=== PATIENT | female | born 1995 | race Asian ===

== ENCOUNTER → 2025-08-08 11:37 | Outpatient (CLI) | payer OTHER, SELFPAY ==
[2025-08-08 14:37] LABS: Urine N gonorrhoeae NOT DETECTED
[2025-08-08 14:40] LABS: Urine Chlamydia NOT DETECTED
== END ==
PROVIDERS: Visit Provider Obstetrics & Gynecology
DX: Z11.3 Encounter for screening for infections with a predominantly sexual mode of transmission (principal)
CPT/HCPCS: 87491; 87591

== ENCOUNTER → 2025-08-08 12:09 | Outpatient (CLI) | payer OTHER, SELFPAY ==
[2025-08-08 12:45] LABS: Add Manual Diff / Slide Review NO; Hematocrit 38.1 % (36-46); Hemoglobin 13.1 g/dL (12.0-16.0); Lymphocytes Absolute Auto 1700 /uL (1100-4500); Mean Corpuscular HGB Conc 34.3 % (30-36); Mean Corpuscular Hemoglobin 29.6 PG (26-34); Mean Corpuscular Volume 86.4 fL (80-100); Platelet Count 290 X10^3/uL (150-400)
[2025-08-08 13:30] LABS: Natera Collection Specimen Collected
[2025-08-08 13:53] LABS: Hepatitis B Surface Antigen NEGATIVE s/c (NEGATIVE)
[2025-08-08 14:10] LABS: HIV 1 & 2 Ab/Ag 4th Gen Combo NEGATIVE (NEGATIVE); Hep C Virus Ab w/Reflex Quant NEGATIVE s/c (NEGATIVE)
== END ==
PROVIDERS: Obstetrics & Gynecology; Referring Provider Obstetrics & Gynecology; Visit Provider Obstetrics & Gynecology
DX: Z34.80 Encounter for supervision of other normal pregnancy, unspecified trimester (principal); Z3A.10 10 weeks gestation of pregnancy; Z11.3 Encounter for screening for infections with a predominantly sexual mode of transmission
CPT/HCPCS: 36415; 80055; 86787; 86803; 86850; 86900; 86901; 87086; 87389; 87491; 87591

== ENCOUNTER → 2025-09-11 10:38 | Outpatient (CLI) | payer OTHER, SELFPAY | PROVIDERS: Referring Provider Obstetrics & Gynecology; Visit Provider Obstetrics & Gynecology | DX: Z34.82 Encounter for supervision of other normal pregnancy, second trimester (principal); Z36.0 Encounter for antenatal screening for chromosomal anomalies | CPT/HCPCS: 36415; 82105 ==

== ENCOUNTER → 2025-10-09 11:50 | Outpatient (CLI) | payer OTHER, SELFPAY ==
--- NOTE | 2025-10-09 11:51 | DI.US.S_ITS ---
PROCEDURE: US OB >= 14 WEEKS FETUS INDICATIONS: 20 weeks anatomy scan TECHNIQUE: Real-time scanning was performed of the fetus, with image documentation and biometric measurements. Calculations are based on the working ANKIT of 03/01/2026. COMPARISON: None. FINDINGS: General: A single living intrauterine gestation is present. Presentation: Breech Placenta: Placental position is posterior , without previa. Amniotic fluid index: 13.9 cm, normal range is 5-24 cm. Single deepest vertical pocket is 3.9 cm. heart rate: 152 beats per minute. Maternal cervical canal: 3.0 cm long. Normal lower limit is 2.5 cm. biometrics: Biparietal diameter: 4.2 cm, 18 week 5 day Head circumference: 15.6 cm, 18 week 4 day Abdominal circumference: 14.2 cm, 19 week 4 day Femur length: 2.6 cm, 17 week 6 day Clinically estimated gestational age: 19 week 4 day Composite gestational age from present scan: 18 week 5 day Estimated weight and percentile: 256 g, 10th percentile Anatomic survey: Neuro: Ventricles are non-dilated at less than 10 mm. Cisterna magna is normal at 3-11 mm. Cerebellum is normal in size and morphology. Nuchal skin fold: Normal at less than 6 mm between 14-21 weeks gestational age. Face: Nose and lips, facial profile are normal. Spine: No evidence for spina bifida. Heart: 4-chambered heart is present, with normal ventricular outflow tracts. Diaphragm: Diaphragm is intact. Stomach: Left-sided stomach is present. Kidneys: No hydronephrosis. Normal is less than 5 mm in 2nd trimester, less than 7 mm in 3rd trimester. Cord: 3-vessel cord has orthotopic insertion. Bladder: Normal in size. Extremities: All 4 extremities identified. IMPRESSION: Single live intrauterine consistent with 18 week 5 day gestation. Normal anatomic survey Approved by: Bernard Munoz M.D. on 10/10/2025 at 17:36
== END ==
LOC: US 11:51
PROVIDERS: Referring Provider Obstetrics & Gynecology; Visit Provider Obstetrics & Gynecology
DX: Z34.82 Encounter for supervision of other normal pregnancy, second trimester (principal); Z36.0 Encounter for antenatal screening for chromosomal anomalies; Z3A.19 19 weeks gestation of pregnancy
CPT/HCPCS: 76811

== ENCOUNTER → 2025-11-13 12:11 | Outpatient (CLI) | payer OTHER, SELFPAY ==
[2025-11-13 14:10] LABS: Hematocrit 33.1 % (36-46); Hemoglobin 11.2 g/dL (12.0-16.0)
[2025-11-13 14:30] LABS: GTT (PREG) 1 Hour PP 50gm Dose 146 mg/dL (76-139)
== END ==
PROVIDERS: Referring Provider Obstetrics & Gynecology; Visit Provider Obstetrics & Gynecology
DX: Z13.1 Encounter for screening for diabetes mellitus (principal); Z13.0 Encounter for screening for diseases of the blood and blood-forming organs and certain disorders involving the immune mechanism
CPT/HCPCS: 36415; 82950; 85014; 85018